=== PATIENT | female | born 2000 | race Caucasian/White ===

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

== ENCOUNTER 2018-07-08 19:17 | Emergency (ER) | payer OTHER ==
--- NOTE | 2018-07-08 19:28 | UC ---
Throat Pain/Nasal [place] HPI - History of Current Complaint Stated Complaint: SINUS CONGESTION Time Seen by Provider: 07/08/18 19:28 Hx Last Menstrual Period: 2 WEEKS AGO - Allergies/Home Medications Allergies/Adverse Reactions: Allergies Allergy/AdvReac Type Severity Reaction Status Date / Time No Known Allergies Allergy Verified 07/08/18 19:29 Home Medications: Home Medications Pseudoephedrine TAB* [Sudafed TAB*] 60 mg PO ONCE PRN 07/08/18 [History Confirmed 07/08/18] PMH/Surg Hx/FS Hx/Imm Hx - Surgical History Surgical History: None - Family History Known Family History: Positive: None Negative: Cardiac Disease, Hypertension, Respiratory Disease - Social History Alcohol Use: Weekly Substance Use Type: None Smoking Status (MU): Never Smoked Tobacco Discharge - Sign-Out/Discharge Documenting (check all that apply): Patient Departure All imaging exams completed and their final reports reviewed: No Studies - Discharge Plan Condition: Stable Disposition: HOME Patient Education Materials: Sinusitis (ED) Referrals: No Primary Care Phys,NOPCP [Primary Care Provider] - Additional Instructions: If you develop a fever, shortness of breath, chest pain, new or worsening symptoms - please call your PCP or go to the ED. - Billing Disposition and Condition Condition: STABLE Disposition: Home
[2018-07-08 19:29] VITALS: BP 126/85
--- NOTE | 2018-07-08 19:52 | UC ---
Throat Pain/Nasal [place] HPI - HPI Summary HPI Summary: 18 yo female presents with a head complaint. She tells me that for the last 2-3 weeks she has been having intermittent temporal discomfort and dizziness. She saw her PCP 1 week ago for this and tells me that she had a large workup and everything was normal. Today her symptoms returned, but now in addition is feeling pain in her maxillary sinuses and ethmoid sinuses. She states she has never had a sinus infection before and is unsure what they feel like, but doesn' t feel that she has any sinus congestion or runny nose. She has been using a flonase nasal spray and sudafed which help for a few hours, but her symptoms will return. She also admits that she is a very anxious person and was reading online earlier today about brain abscesses - this worried her. She denies fever , chills, sore throat, cough, SOB, chest pain, n/v, dysuria, weakness. - History of Current Complaint Chief Complaint: UCHeadache Stated Complaint: SINUS CONGESTION Time Seen by Provider: 07/08/18 19:28 Hx Obtained From: Patient Hx Last Menstrual Period: 3 WEEKS AGO Onset/Duration: Gradual Onset Severity: Mild Pain Intensity: 2 Pain Scale Used: 0-10 Numeric - Allergies/Home Medications Allergies/Adverse Reactions: Allergies Allergy/AdvReac Type Severity Reaction Status Date / Time No Known Allergies Allergy Verified 07/08/18 19:29 Home Medications: Home Medications Pseudoephedrine TAB* [Sudafed TAB*] 60 mg PO ONCE PRN 07/08/18 [History Confirmed 07/08/18] PMH/Surg Hx/FS Hx/Imm Hx - Additional Past Medical History Additional PMH: None - Surgical History Surgical History: None - Family History Known Family History: Positive: None Negative: Cardiac Disease, Hypertension, Respiratory Disease - Social History Occupation: Student Lives: Dormitory/Roommates Alcohol Use: Occasionally Substance Use Type: None Smoking Status (MU): Never Smoked Tobacco Review of Systems All Other Systems Reviewed And Are Negative: Yes Constitutional: Positive: Negative Skin: Positive: Negative Eyes: Positive: Negative ENT: Positive: Sinus Pain/Tenderness Respiratory: Positive: Negative Cardiovascular: Positive: Negative Gastrointestinal: Positive: Negative Genitourinary: Positive: Negative Neurovascular: Positive: Negative Musculoskeletal: Positive: Negative Neurological: Positive: Headache Psychological: Positive: Negative Physical Exam - Summary Physical Exam Summary: GENERAL: NAD. Appears anxious SKIN: No rashes, sores, ulcers, masses, lesions. HEENT: Head: AT/NC Eyes: PERRLA. EOM intact. Conjunctiva clear without inflammation or discharge. Ears: Hearing grossly normal. TMs intact, no bulging, erythema, or edema. Nose: Nasal mucosa pink and moist. Mild TTP maxillary and ethmoid sinuses. NTTP frontal sinus. Throat: Posterior oropharynx without exudates, erythema, or tonsillar enlargement. Uvula midline. NECK: Supple. Nontender. No lymphadenopathy. CHEST: CTAB. No r/r/w. No accessory muscle use. Breathing comfortably and in no distress. CV: RRR. Without m/r/g. Pulses intact. Brisk cap refill. MSK: FROM in B/L UEs and LEs with symmetric strength. NEURO: A&Ox3. 3 word recall, remote, recent memory, ability to follow 2-step directions, and attention intact. CN: II: Peripheral sultana intact. Vision normal. III, IV, : EOMI. No nystagmus. PERRLA. V: Sensations intact and symmetric. Opens mouth and clenches teeth. VII: No facial asymmetry. Forehead wrinkles. Grins, shuts eyes, frowns, puffs cheeks. VIII: Hearing intact to finger rub. IX, X: Swallows and coughs. Uvula midline. XI: Shrugs shoulders. Turns head against resistance. XII: No tongue deviation [id number] are intact. Gait with normal base. Romberg: maintains balance, no pronator drift. Normal speech. No facial drooping. PSYCH: Age appropriate behavior. Triage Information Reviewed: Yes Vital Signs: Initial Vital Signs Temp 97.7 F 07/08/18 19:24 Pulse 83 07/08/18 19:24 Resp 16 07/08/18 19:24 BP 126/85 07/08/18 19:24 Pulse Ox 100 07/08/18 19:24 Vital Signs Reviewed: Yes Throat Pain/Nasal Course/Dx - Course Course Of Treatment: I had a long discussion with the pt that this could be do to an underlying sinus infection given that flonase and sudafed provide her relief. I do suspect there is a degree of underlying anxiety playing a role. We discussed performing a head CT today to evaluated for an intracranial pathology , but she called her mother who is a PA and they discussed this and pt elected not to have a CT today. I will treat her for a sinus infection and have her f/u with her PCP if her symptoms continue. If her symptoms worsen advised to go to the ED. Pt voiced understanding and is in agreement with the plan. - Differential Dx/Diagnosis Provider Diagnosis: Sinus pain, Headache Discharge - Sign-Out/Discharge Documenting (check all that apply): Patient Departure All imaging exams completed and their final reports reviewed: No Studies - Discharge Plan Condition: Stable Disposition: HOME Prescriptions: Amoxicillin PO (*) [Amoxicillin 875 MG (*)] 875 mg PO BID #14 tab Patient Education Materials: Sinusitis (ED) Referrals: No Primary Care Phys,NOPCP [Primary Care Provider] - Additional Instructions: If you develop a fever, shortness of breath, chest pain, new or worsening symptoms - please call your PCP or go to the ED. 1) Continue the sudafed and flonase 2) If your symptoms do not improve - please follow up with your PCP for further evaluation - Billing Disposition and Condition Condition: STABLE Disposition: Home
== END 2018-07-08 20:34 | disposition home or self-care (01) ==
LOC: UCEAST 19:17
DX: J34.89 Other specified disorders of nose and nasal sinuses (principal); R51 Headache
CPT/HCPCS: 99212; G0463